=== PATIENT | female | born 1935 | race Two or more races ===

== ENCOUNTER 2020-02-14 06:00 | Day surgery (SDC) | payer OTHER ==
[~2020-02-14 06:00] MED LIST: ARICEPT10 MG PO; LOTREL 10-40 M1 EACH PO; METFORMIN HCL500 M3 PO; SERTRALINE HCL25 MG PO; SIMVASTATIN10 MG PO; SYNTHROID88 MCG PO; VALPROIC ACID250 MG PO
== END 2020-02-14 12:35 | disposition home or self-care (01) ==
LOC: CIR.AMB 06:00
PROVIDERS: ATTEND Colon & Rectal Surgery
DX: K64.8 Other hemorrhoids (principal); K64.4 Residual hemorrhoidal skin tags; Z20.828 Contact with and (suspected) exposure to other viral communicable diseases